=== PATIENT | female | born 1955 | race Caucasian/White ===

== ENCOUNTER 2019-02-14 09:40 | Emergency (ER) | payer OTHER ==
[~2019-02-14] VITALS: Ht 165.1 cm; Wt 78.9 kg
[~2019-02-14 09:40] MED LIST: B-12 INJ; B-121000 MCG PO; CALCIUM PO; CALTRATE PO; CO Q-10 100 MG1 EACH PO; D3 PO; DOXEPIN HCL10 MG PO; EVISTA60 MG PO; FIBER GUMMIES2.5 GM PO; FISH OIL 1,2001 EACH PO; LUNESTA1 MG PO; MAGNESIUM250 MG PO; MUCINEX600 MG PO; PROBIOTICS PO; TESTOSTERONE TOP; VITAMIN C PO; VITAMIN D3 PO; ZANTAC 7575 MG PO; [UNRECOGNIZED DRUG - OTHER] PO; lunesta
[2019-02-14] MEDS ORDERED: TRAMADOL HCL 50 MG TAB PO ONE (10:15)
--- NOTE | 2019-02-14 10:48 | Diagnostic Imaging Report ---
Exam: Head CT without contrast History: Severe headache after trauma. Comparison studies: None Technique: Axial images were obtained from the skull base to the vertex. Coronal and sagittal images reconstructed from the axial data. Dose modulation, iterative reconstruction, and/or weight based adjustment of the mA/kV was utilized to reduce the radiation dose to as low as reasonably achievable. Radiation dose: Total DLP: 1059 mGy*cm. Estimated effective dose: DLP x 0.015 Intravenous contrast: None Findings: Soft tissues: Left supraorbital soft tissue swelling. No retained evident body. Bones: No fractures, blastic or lytic lesions. Brain sulci: Appropriate for age. Ventricles: Normal in size and configuration. No hydrocephalus. Extra-axial spaces: No masses, no fluid collection. Parenchyma: No abnormal densities. No masses, acute hemorrhage, acute or chronic vascular insults. Sellar/suprasellar region: No abnormalities. Craniocervical junction: Patent foramen magnum. No Chiari one malformation. IMPRESSION: 1. Left supraorbital soft tissue swelling. 2. No fracture or intracranial abnormalities. Signed by: Dr. Ap Grijalva M.D. on 02/14/2019 10:45 AM
--- NOTE | 2019-02-14 10:55 | Diagnostic Imaging Report ---
History: Trauma Comparison studies: None Technique: Axial images were obtained through the cervical region.. Coronal and sagittal images reconstructed from the axial data. Dose modulation, iterative reconstruction, and/or weight based adjustment of the mA/kV was utilized to reduce the radiation dose to as low as reasonably achievable. Total DLP: 138 mGy*cm. Estimated effective dose: DLP x 0.015 Intravenous contrast: None Findings: Fractures: None. Atlantoaxial articulation: Intact. Alignment: Normal lordosis. No scoliosis. Cervicomedullary junction: No abnormalities. The foramen magnum is patent. Soft tissues: No gross acute abnormalities. Vertebrae: No fractures, infection or neoplasm. Degenerative changes: Disc height is maintained. Patent canal and foramina. Incidental findings: Hypodense 5 mm right superior thyroid lobe nodule or cyst, for which no further imaging workup is indicated for current JACR guidelines. IMPRESSION: 1. No cervical spine fracture subluxation. 2. Ligament, spinal cord and or vascular abnormalities cannot be excluded on the basis of this examination Signed by: Dr. Ap Grijalva M.D. on 02/14/2019 10:51 AM
== END 2019-02-14 11:26 | disposition home or self-care (01) ==
LOC: ER 09:40
DX: G44.89 Other headache syndrome (principal); W22.8XXA Striking against or struck by other objects, initial encounter; Y93.89 Activity, other specified; Y92.008 Other place in unspecified non-institutional (private) residence as the place of occurrence of the external cause
CPT/HCPCS: 70450; 72125; 99283

== ENCOUNTER → 2020-04-21 | Day surgery (SDC) | payer OTHER ==
[~2020-04-21] MED LIST changes: +BIOTIN2500 MCG PO; +BUPIVACAINE HCL 0.5% INJ 30 ML VIAL INJ ONE; +CEFAZOLIN SOD 1 GM/NS 50ML 50 ML IV ONE; +DEXAMETHASONE SOD PHOS INJ 4 MG/ML VIAL ONE; +FENTANYL CITRATE/PF 100MCG/2 ML INJ ONE; +GLYCOPYRROLATE INJ 0.2 MG/ML VIAL ONE; +LIDOCAINE 2% /EPINEPHRINE 20 ML SDV INJ ONE; +LIDOCAINE HCL 2% LOCAL INJ 5 ML SDV VIAL INJ ONE; +MELATONIN3 M1 PO; +MIDAZOLAM HCL 2 MG/2 ML VIAL ONE; +MUPIROCIN 2% OINT 22 GM TUBE ONE; +NEOSTIGMINE 1 MG/ML 10ML VIAL ONE; +ONDANSETRON HCL INJ 2MG/ML 2ML 2 MG/ML VIAL ONE; +OYSTER SHELL C1 EA12 PO; +PROLIA60 MG/1 ML INH; +PROPOFOL IV EMULSION 10 MG/ML 20 ML VIAL ONE; +ROCURONIUM BROMIDE 10 MG/ML 5ML VIAL IV ONE; +SEVOFLURANE INHAL SOLN 250 ML PEN BTL ONE
[2020-04-21 08:40] VITALS: BP 118/68
== END | disposition home or self-care (01) ==
LOC: OR 06:14
PROVIDERS: ATTEND Plastic Surgery
DX: D17.79 Benign lipomatous neoplasm of other sites (principal); J45.909 Unspecified asthma, uncomplicated; K21.9 Gastro-esophageal reflux disease without esophagitis; Z88.1 Allergy status to other antibiotic agents; Z91.041 Radiographic dye allergy status; Z01.810 Encounter for preprocedural cardiovascular examination; Z01.812 Encounter for preprocedural laboratory examination; Z20.828 Contact with and (suspected) exposure to other viral communicable diseases
CPT/HCPCS: 21933; 93005; J0690; J1100; J2001 ×2; J2250; J2405; J2704; J2710; J3010; U0002

== ENCOUNTER 2020-08-21 18:31 | Emergency (ER) | payer MEDICARE, OTHER ==
[~2020-08-21] VITALS: Ht 162.6 cm; Wt 74.8 kg
[~2020-08-21 18:31] MED LIST changes: -BUPIVACAINE HCL 0.5% INJ 30 ML VIAL INJ ONE; -CEFAZOLIN SOD 1 GM/NS 50ML 50 ML IV ONE; -DEXAMETHASONE SOD PHOS INJ 4 MG/ML VIAL ONE; -FENTANYL CITRATE/PF 100MCG/2 ML INJ ONE; -GLYCOPYRROLATE INJ 0.2 MG/ML VIAL ONE; -LIDOCAINE 2% /EPINEPHRINE 20 ML SDV INJ ONE; -LIDOCAINE HCL 2% LOCAL INJ 5 ML SDV VIAL INJ ONE; -MIDAZOLAM HCL 2 MG/2 ML VIAL ONE; -MUPIROCIN 2% OINT 22 GM TUBE ONE; -NEOSTIGMINE 1 MG/ML 10ML VIAL ONE; -ONDANSETRON HCL INJ 2MG/ML 2ML 2 MG/ML VIAL ONE; -PROPOFOL IV EMULSION 10 MG/ML 20 ML VIAL ONE; -ROCURONIUM BROMIDE 10 MG/ML 5ML VIAL IV ONE; -SEVOFLURANE INHAL SOLN 250 ML PEN BTL ONE
[2020-08-21] MEDS ORDERED: SODIUM CHLORIDE 0.9% 1000ML 1,000 ML IV STA (18:58)
[2020-08-21] MEDS ORDERED: KETOROLAC TROMETHAMINE 30 MG/ML VIAL IV ONE (19:00)
[2020-08-21] MEDS ORDERED: ONDANSETRON HCL INJ 2MG/ML 2ML 2 MG/ML VIAL IV ONE (19:00)
[2020-08-21] MEDS ORDERED: FAMOTIDINE 20 MG/2 ML VIAL IV ONE ×2 (19:00→19:44)
[2020-08-21] MEDS ORDERED: ACETAMINOPHEN 325 MG TAB PO ONE (19:00)
[2020-08-21] MEDS ORDERED: DEXAMETHASONE SOD PHOS INJ 4 MG/ML VIAL IV ONE (19:00)
[2020-08-21] MEDS ORDERED: CEFTRIAXONE SOD 1 GM VIAL IV ONE (19:00)
[2020-08-21] MEDS ORDERED: CEFTRIAXONE SOD 1 GM in SODIUM CHLORIDE 0.9% 50ML 50 ML IV ONE (19:15)
[2020-08-21] MEDS ORDERED: ONDANSETRON HCL INJ 2MG/ML 2ML 2 MG/ML VIAL ONE (19:42)
[2020-08-21] MEDS ORDERED: ACETAMINOPHEN 325 MG TAB ONE (19:43)
[2020-08-21] MEDS ORDERED: KETOROLAC TROMETHAMINE 30 MG/ML VIAL ONE (19:43)
[2020-08-21] MEDS ORDERED: DEXAMETHASONE SOD PHOS INJ 4 MG/ML VIAL ONE (19:43)
[2020-08-21] MEDS ORDERED: CEFTRIAXONE SOD 1 GM 50 ML IV ONE (19:44)
[2020-08-21] MEDS ORDERED: SODIUM CHLORIDE 0.9% 1000ML 1,000 ML ONE (19:44)
[2020-08-21] MEDS ORDERED: VITAMIN D3 PO (22:15)
[2020-08-21] MEDS ORDERED: DEXAMETHASONE4 MG PO (22:15)
[2020-08-21] MEDS ORDERED: AZITHROMYCIN250 MG PO (22:15)
[2020-08-21] MEDS ORDERED: ZOFRAN4 MG PO (22:15)
[2020-08-21] MEDS ORDERED: TYLENOL # 31 EA PO (22:15)
[2020-08-21] MEDS ORDERED: VITAMIN C PO (22:15)
[2020-08-21 22:33] VITALS: BP 118/62
== END 2020-08-21 22:33 | disposition home or self-care (01) ==
LOC: FSED 18:50
DX: U07.1 COVID-19 (principal); R50.9 Fever, unspecified; R11.2 Nausea with vomiting, unspecified; E86.0 Dehydration; R53.1 Weakness; Z71.89 Other specified counseling; K21.9 Gastro-esophageal reflux disease without esophagitis; M79.7 Fibromyalgia
CPT/HCPCS: 71045; 80053; 81003; 85025; 96374; 96375; 96376; 99284; J0696; J1100; J1885; J2405; J7030; U0002

== ENCOUNTER → 2020-08-24 | Emergency (ER) | payer MEDICARE ==
[~2020-08-24] VITALS: Ht 162.6 cm; Wt 74.8 kg
[~2020-08-24] MED LIST changes: +AZITHROMYCIN250 MG PO; +DEXAMETHASONE4 MG PO; +KETOROLAC TROMETHAMINE 30 MG/ML VIAL IV STA; +ONDANSETRON HCL INJ 2MG/ML 2ML 2 MG/ML VIAL IV STA; +PANTOPRAZOLE 40 MG 10ML VIAL IV STA; +POTASSIUM CHLORIDE 10MEQ/100ML 100 ML IV ONE; +POTASSIUM CHLORIDE 20 MEQ TAB CR PO STA; +PROMETHAZINE 12.5MG/ NACL 0.9% 12.5 MG/50 ML BAG IV ONE; +SODIUM CHLORIDE 0.9% 1000ML 1,000 ML IV STA; +SODIUM CHLORIDE 0.9% 500ML 500 ML IV ONE; +TYLENOL # 31 EA PO; +ZOFRAN4 MG PO
[2020-08-24 09:31] LABS: BASOPHILS % 0.1 % (0.0-1.0); HEMATOCRIT 38.4 % (34.2-44.1); HEMOGLOBIN 13.5 g/dL (12.0-16.0); LYMPHOCYTES # (AUTO) 0.7 (1.0-3.2); LYMPHOCYTES % 5.4 % (18.0-39.1); MEAN CORPUSCULAR HEMOGLOBIN 31.2 pg (28-32); MEAN CORPUSCULAR HGB CONC 35.2 g/dL (31-35); MEAN CORPUSCULAR VOLUME 88.7 fL (81-99); MONOCYTES # (AUTO) 0.3 (0.2-0.8); MONOCYTES % 2.4 % (4.4-11.3); NEUTROPHILS # (AUTO) 12.3 (2.1-6.9); NEUTROPHILS % 91.3 % (38.7-80.0); PLATELET COUNT 264 x10e3/uL (140-360); RED BLOOD COUNT 4.33 x10e6/uL (3.6-5.1); RED CELL DISTRIBUTION WIDTH 12.8 % (11.7-14.4)
[2020-08-24 09:50] LABS: ALANINE AMINOTRANSFERASE 23 IU/L (0-55); ALBUMIN 3.2 g/dL (3.5-5.0); ALBUMIN/GLOBULIN RATIO 0.8 (0.8-2.0); ALKALINE PHOSPHATASE 97 IU/L (40-150); AMYLASE 20 U/L (25-125); ANION GAP 12.1 mmol/L (8-16); BLOOD UREA NITROGEN 10 mg/dL (7-26); BUN/CREATININE RATIO 12 (6-25); CALCIUM 8.5 mg/dL (8.4-10.2); CARBON DIOXIDE 31 mmol/L (22-29); CHLORIDE 93 mmol/L (98-107); CREATINE KINASE 27 IU/L (29-168); CREATININE, SERUM 0.84 mg/dL (0.57-1.11); EST GLOMERULAR FILTRATION RATE > 60 ML/MIN (60-); GLUCOSE 112 mg/dL (74-118); LIPASE 5 U/L (8-78); MAGNESIUM 2.1 MG/DL (1.3-2.1); POTASSIUM 3.1 mmol/L (3.5-5.1); SODIUM 133 mmol/L (136-145)
[2020-08-24 10:56] LABS: BAND NEUTROPHILS % (MANUAL) 1 %; LYMPHOCYTES % (MANUAL) 4 % (19-48); MONOCYTES % (MANUAL) 2 % (3.4-9.0); NEUTROPHILS % (MANUAL) 92 % (40-74); PLATELET ESTIMATE ADEQUATE; PLATELET MORPHOLOGY COMMENT NORMAL; RBC MORPHOLOGY COMMENT NORMAL
== END | disposition home or self-care (01) ==
LOC: ER 09:00
DX: U07.1 COVID-19 (principal); R11.2 Nausea with vomiting, unspecified; E86.0 Dehydration; K21.9 Gastro-esophageal reflux disease without esophagitis; M79.7 Fibromyalgia; R53.81 Other malaise
CPT/HCPCS: 36415; 80053; 82150; 82550; 82553; 83690; 83735; 84484; 85025; 99284; C9113; J1885; J2405; J2550; J3480; J7030; J7040

== ENCOUNTER 2021-03-30 12:53 | Emergency (ER) | payer MEDICARE ==
[~2021-03-30] VITALS: Ht 162.6 cm; Wt 74.8 kg
[~2021-03-30 12:53] MED LIST changes: -KETOROLAC TROMETHAMINE 30 MG/ML VIAL IV STA; -ONDANSETRON HCL INJ 2MG/ML 2ML 2 MG/ML VIAL IV STA; -PANTOPRAZOLE 40 MG 10ML VIAL IV STA; -POTASSIUM CHLORIDE 10MEQ/100ML 100 ML IV ONE; -POTASSIUM CHLORIDE 20 MEQ TAB CR PO STA; -PROMETHAZINE 12.5MG/ NACL 0.9% 12.5 MG/50 ML BAG IV ONE; -SODIUM CHLORIDE 0.9% 1000ML 1,000 ML IV STA; -SODIUM CHLORIDE 0.9% 500ML 500 ML IV ONE
[2021-03-30] MEDS ORDERED: BACTRIM DS TAB1 EACH PO (13:55)
[2021-03-30] MEDS ORDERED: DEXAMETHASONE SOD PHOS INJ 4 MG/ML SDV ONE (13:58)
[2021-03-30] MEDS ORDERED: DEXAMETHASONE SOD PHOS 10 MG/1 ML VIAL IV ONE (14:00)
== END 2021-03-30 14:05 | disposition home or self-care (01) ==
LOC: FSED 13:15
DX: H92.03 Otalgia, bilateral (principal); J06.9 Acute upper respiratory infection, unspecified; H69.93 Unspecified Eustachian tube disorder, bilateral; K21.9 Gastro-esophageal reflux disease without esophagitis; M79.7 Fibromyalgia; M81.0 Age-related osteoporosis without current pathological fracture
CPT/HCPCS: 99283; J1100 ×2

== ENCOUNTER → 2021-11-23 | Outpatient (CLI) | payer MEDICARE ==
[~2021-11-23] MED LIST changes: +BACTRIM DS TAB1 EACH PO
== END ==
LOC: CT 11:39
PROVIDERS: ATTEND Internal Medicine
DX: R51.9 Headache, unspecified (principal)
CPT/HCPCS: 70450